=== PATIENT | male | born 1950 | race Caucasian/White ===

== ENCOUNTER → 2019-02-09 | Outpatient (CLI) | payer MEDICARE, SELFPAY | END | disposition home or self-care (01) | LOC: LABSPEC 17:24 | PROVIDERS: Referring Provider Otolaryngology Otolaryngology/Facial Plastic Surgery; Visit Provider Otolaryngology Otolaryngology/Facial Plastic Surgery | DX: J32.9 Chronic sinusitis, unspecified (principal); J02.9 Acute pharyngitis, unspecified | CPT/HCPCS: 87070 ==

== ENCOUNTER → 2019-02-20 | Outpatient (CLI) | payer MEDICARE, SELFPAY ==
--- NOTE | 2019-02-20 08:20 | RAD_ITS ---
The examination was done using double contrast techniques. Patient swallowed barium without difficulty there is no evidence of obstruction, hiatal hernia or reflux. The visualized portion of the stomach and duodenum as well as proximal small bowel are unremarkable. RAD/Esophagus Only IMPRESSION: Negative barium swallow Electronically Signed: Karime Tate, at 12:29 EDT Tel , Service support ,
== END | disposition home or self-care (01) ==
LOC: RAD 08:16
PROVIDERS: Visit Provider Otolaryngology Otolaryngology/Facial Plastic Surgery
DX: R13.10 Dysphagia, unspecified (principal)
CPT/HCPCS: 74220

== ENCOUNTER → 2019-03-23 | Outpatient (CLI) | payer MEDICARE, SELFPAY ==
--- NOTE | 2019-03-23 | IMM_PTH ---
PATIENT: CELSO TATUM Jr. LOC: [facility] U#:[id number] AGE/SX: 68/M ROOM: RE03/23/[address]: Dr. Blayne Crockett MD : 1950 BED: DIS: 03/23/2019 SPEC #: [id number] RECD: 03/25/19 11:24 STATUS: BENJAMIN REJanki #: [id number] JENNA: 03/23/19 00:[address]: Blayne Crockett DEPT: IMMUNOHISTOCHEMISTRY RECD BY: Haylee Garcia ENTERED: 03/25/19 11:24 SP TYPE: IMMUNO OT DR: No Primary Care Phys Tissues: Esophagus, NOS Procedures: H Pylori (initial) PHYSICIAN & INSTITUTION [place] [id number] SPECIMEN INFORMATION: Tissue Source: Distal esophageal biopsy Clinical Info: GERD Specimen Number: [id number] CPT code: 19804 METHODOLOGY: Deparaffinized sections of prefer/formalin-fixed tissue or PAP/DQ stained slides are incubated with monoclonal/polyclonal antibodies/oligonucleotide probes. Localization is made via biotin free immunoperoxidase method. Appropriate controls are performed and reacted as expected. Results on target cell population are indicated in the following table: RESULTS: ANTIBODY / CLONE RESULT H Pylori (polyclonal) negative These tests were developed and their performance characteristics determined by [facility]. They may not have been cleared or approved by the [place]. Food and Drug Administration. The FDA has determined that such clearance or approval is not necessary. INTERPRETATION: Distal esophagus, biopsy: Gastric mucosa negative for Helicobacter pylori organisms. AM:ofelia 03/26/19
--- NOTE | 2019-03-23 12:57 | EGD_PTH ---
PATIENT: CELSO TATUM Jr. LOC: [facility] U#:[id number] AGE/SX: 68/M ROOM: RE03/23/[address]: Dr. Blayne Crockett MD : 1950 BED: DIS: 03/23/2019 SPEC #: [id number] RECD: 03/23/19 15:26 STATUS: BENJAMIN KARIE #: [id number] JENNA: 03/23/19 12:[address]: Blayne Crockett DEPT: SURGICAL PATHOLOGY RECD BY: Mele Layton ENTERED: 03/24/19 11:04 SP TYPE: EGD BIOPSY OTHR DR: Audra Primary Care [facility] Tissues: Esophageal mucous membrane Procedures: Surgery Specimen Level IV HEADER OPERATION: EGD with biopsy PRE-OP DIAGNOSIS: GERD TISSUE SUBMITTED: Distal esophageal biopsies, rule out Fernandez's MICROSCOPIC DIAGNOSIS Distal esophagus, biopsy: Fragments of gastric mucosa with mild chronic inflammation. AM:caleb 7/31/19 COMMENT Results for special stains for H. pylori are pending and will be reported separately. MICROSCOPIC DESCRIPTION Slides are reviewed. GROSS DESCRIPTION Received is one container labeled with the patient name and designated distal esophageal biopsy. The specimen consists of two irregular fragments of light hennessy soft tissue that in aggregate measure 0.3 x 0.3 x 0.1 cm. The specimen is totally submitted in one cassette. / SJ:sp 03/24/19 TC: 3 CPT: 20389
== END | disposition home or self-care (01) ==
PROVIDERS: Referring Provider Internal Medicine Gastroenterology; Visit Provider Internal Medicine Gastroenterology
DX: K21.9 Gastro-esophageal reflux disease without esophagitis (principal)
CPT/HCPCS: 88305; 88342